=== PATIENT | female | born 1960 | race American Indian/Alaskan Native ===

== ENCOUNTER 2021-07-25 11:06 | Emergency (ER) | payer OTHER ==
[2021-07-25 11:14] VITALS: BP 192/107
== END 2021-07-25 19:00 | disposition left against medical advice (07) ==
LOC: ED 11:06
DX: I10 Essential (primary) hypertension (principal); R50.9 Fever, unspecified; Z53.21 Procedure and treatment not carried out due to patient leaving prior to being seen by health care provider